=== PATIENT | female | born 1995 | race Caucasian/White ===

== ENCOUNTER 2019-07-16 18:31 | Emergency (ER) | payer SELFPAY ==
[~2019-07-16] VITALS: Ht 172.7 cm; Wt 125.5 kg
[2019-07-16 18:39] VITALS: BP 138/88
[2019-07-16] MEDS ORDERED: AMOX1TAB61 PO (18:51)
--- NOTE | 2019-07-16 18:52 | PHYS DOC ---
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 Pt states that [place] was at the dog park around 1800 today and a "mastiff" type dog came over and started to attack her dog and pt received multiple bites while trying to protect her dog. Pt states that she talked to the dog owners shortly and they claimed the dog was up to date on vaccinations and then subsequently left before exchanging any more information. Pt is not sure when her last tetanus vaccine was. Denies . Review of Systems Review of Systems Constitutional: Denies fever or chills Eyes: Denies redness or eye pain HENT: Denies nasal congestion or sore throat Respiratory: Denies cough or shortness of breath Cardiovascular: Denies chest pain or palpitations GI: Denies abdominal pain, nausea, or vomiting : Denies dysuria or hematuria Musculoskeletal: Denies back pain or joint pain Integument: Endorses multiple bite wounds on left extremity Neurologic: Denies headache, focal weakness or sensory changes Complete systems were reviewed and found to be within normal limits, except as documented in this note. Allergies Allergies NKDA Physical Exam Physical Exam Constitutional: Well developed, well nourished, no acute distress, non-toxic appearance HENT: Normocephalic, atraumatic, oropharynx moist Eyes: Conjunctiva normal, no discharge Neck: Normal range of motion, no tenderness, supple Cardiovascular: Heart rate normal, regular rhythm Lungs & Thorax: Bilateral breath sounds clear to auscultation, no wheezing Skin: Warm, dry, no erythema, no rash, greater than 5 open wounds on left upper extremity, edema surrounding wounds. Wounds tender to palpation. Largest wound is on dorsal aspect of hand near wrist measuring 1cm in length, 1-2mm in depth, slow active bleeding, no foreign body noted Extremities: No tenderness, ROM intact, no edema, left hand tendon function intact, left wrist ROM intact Neurologic: Alert and oriented X 3, no focal deficits noted Psychologic: Affect normal, judgment normal EKG EKG [] Radiology/Procedures Radiology/Procedures [] Course & Med Decision Making Course & Med Decision Making Pt is a 23 yo female presenting after suffering multiple dog bite wounds to left hand. Pt reports no tenderness to palpation of upper extremity bony prominences. No foreign body noted. Hand/wrist ROM intact. Pt states that attacking dog owners did not provide any information on dog other than reporting it's vaccinations were up to date. No evidence to support bony fracture. Wound care provided. Empiric antibiotics initiated. Will send patient home with a course of oral and antibiotics, and directions to apply triple antibiotic ointment to wounds as well. No primary closure indicated as wound is on hand s/p animal bite. Rabies low risk. Patient stable for discharge with outpatient follow-up with PCP. Discussed findings and plan with patient and family, who acknowledge understanding and agreement. Dragon Disclaimer Dragon Disclaimer This electronic medical record was generated, in whole or in part, using a voice recognition dictation system. Departure Departure: Impression: Primary Impression: Dog bite Disposition: HOME, SELF-CARE Condition: STABLE Referrals: PCP,NO (PCP) Patient Instructions: Animal Bite, [id number], VIS, Tetanus, Diphtheria (Td); Tetanus, Diphtheria, Pertussis (Tdap) - CDC Additional Instructions: Do not soak your wound. You may shower. Clean wound daily with soap and water. Change dressing 2 times daily. Use over the counter antibiotic ointment with each dressing change. Scripts Amoxicillin/Potassium Clav (AUGMENTIN 875-125 TABLET) 1 Each Tablet 1 TAB PO BID for Dog bite for 7 Days, #14 TAB 0 Refills Prov: ALANNA CRISTOBAL DO 07/16/19 Problem Qualifiers Primary Impression: Dog bite Encounter type: initial encounter Qualified Codes: W54.0XXA - Bitten by dog, initial encounter ALANNA CRISTOBAL DO Jul 16, 2019 18:52
[2019-07-16] MEDS ORDERED: AMOXICILLIN/K CLAV 875/125MG TABLET. PO ONE (19:00)
[2019-07-16] MEDS ORDERED: NEOMY/BACITR/POLYMYXIN OINT PACKET. TP ONE (19:00)
[2019-07-16] MEDS ORDERED: DIPHTH,PERTUSS(ACELL),TET TOX 0.5 ML DISP.SYRIN. VAX IM ONE (19:30)
== END 2019-07-16 19:15 | disposition home or self-care (01) ==
LOC: ER 18:31
DX: S61.402A Unspecified open wound of left hand, initial encounter (principal); W54.0XXA Bitten by dog, initial encounter; Y93.89 Activity, other specified; Y92.89 Other specified places as the place of occurrence of the external cause; Y99.8 Other external cause status
CPT/HCPCS: 90471; 90715; 99283

== ENCOUNTER 2020-10-14 05:23 | Emergency (ER) | payer SELFPAY ==
[~2020-10-14] VITALS: Ht 170.2 cm; Wt 135.0 kg
[~2020-10-14 05:23] MED LIST: AMOX1TAB61 PO
[2020-10-14 05:40] VITALS: BP 139/91
[2020-10-14] MEDS ORDERED: MICO15CR7 VG (05:51)
[2020-10-14] MEDS ORDERED: NORE-205 PO (05:51)
[2020-10-14 05:56] LABS: CLARITY,URINE CLEAR; COLOR,URINE YELLOW
[2020-10-14 05:57] LABS: BILIRUBIN,URINE NEG (NEG); GLUCOSE,URINE NEG (NEG); NITRITE,URINE NEG (NEG); UROBILINOGEN,URINE 0.2 mg/dL (0.2 mg/dL)
[2020-10-14 06:01] LABS: BACTERIA,URINE MOD /HPF (0-FEW); SQUAMOUS EPITHELIAL CELL,UR FEW /LPF
--- NOTE | 2020-10-14 06:10 | PHYS DOC ---
Past History Past Surgical History: No Surgical History Smoking: Non-smoker Alcohol Use: None Drug Use: None General Adult EDM: Chief Complaint: VAGINAL PROBLEM HPI: HPI: 24-year-old female presents with vaginal discharge and pain. Patient had UTI symptoms started 6 days ago. She was prescribed Bactrim and took that for 3 days. Her URI symptoms have improved but now she has a white, thick vaginal discharge. It is occasionally pruritic. She has tried Monistat tctb-tcb-[id number] cream yesterday and today. When she puts that on it has caused a burning sensation and she cannot tolerate it. She decided she would come in this morning for evaluation. She denies fever or chills. She denies history of STD. She is in a sexual relationship at this time. Her boyfriend accompanies her. Review of Systems: Review of Systems: Constitutional: Denies fever or chills Eyes: Denies change in visual acuity HENT: Denies nasal congestion or sore throat Respiratory: Denies cough or shortness of breath Cardiovascular: Denies chest pain or edema GI: Denies abdominal pain, nausea, vomiting, bloody stools or diarrhea : Vaginal discharge Musculoskeletal: Denies back pain or joint pain Integument: Denies rash Neurologic: Denies headache, focal weakness or sensory changes Endocrine: Denies polyuria or polydipsia Lymphatic: Denies swollen glands Psychiatric: Denies depression or anxiety Allergies: Allergies: Allergies Coded Allergies Type Severity Reaction Last Updated Verified No Known Drug Allergies 10/14/20 No Physical Exam: PE: Constitutional: Well developed, well nourished, no acute distress, non-toxic appearance. [] HENT: Normocephalic, atraumatic, bilateral external ears normal, oropharynx moist, no oral exudates, nose normal. [] Eyes: PERRLA, EOMI, conjunctiva normal, no discharge. [] Neck: Normal range of motion, no tenderness, supple, no stridor. [] Cardiovascular:Heart rate regular rhythm, no murmur [] Lungs & Thorax: Bilateral breath sounds clear to auscultation [] Abdomen: Bowel sounds normal, soft, no tenderness, no masses, no pulsatile masses. [] Skin: Warm, dry, no erythema, no rash. [] Back: No tenderness, no CVA tenderness. [] Extremities: No tenderness, no cyanosis, no clubbing, ROM intact, no edema. [] Neurologic: Alert and oriented X 3, normal motor function, normal sensory function, no focal deficits noted. [] Psychologic: Affect normal, judgement normal, mood normal. : Normal external genitalia. Red, irritated vaginal wall with thick white discharge. Mild tenderness with exam. [] Current Patient Data: Labs: Laboratory Tests Test 10/14/20 05:35 Urine Collection Type Void Urine Color Yellow Urine Clarity Clear Urine pH 5.5 Urine Specific [place] 1.020 Urine Protein Neg (NEG-TRACE) Urine Glucose (UA) Neg mg/dL (NEG) Urine Ketones (Stick) Neg mg/dL (NEG) Urine Blood Small (NEG) Urine Nitrite Neg (NEG) Urine Bilirubin Neg (NEG) Urine Urobilinogen Dipstick 0.2 mg/dL (0.2 mg/dL) Urine Leukocyte Esterase Mod (NEG) Urine RBC 6-10 /HPF (0-2) Urine WBC 11-20 /HPF (0-4) Urine Squamous Epithelial Cells Few /LPF Urine Bacteria Mod /HPF (0-FEW) Vital Signs: Vital Signs Date Time Temp Pulse Resp B/P (MAP) Pulse Ox O2 Delivery O2 Flow Rate FiO2 10/14/20 05:40 98.3 106 20 139/91 (107) 98 Room Air EKG: EKG: [] Radiology/Procedures: Radiology/Procedures: [] Heart Score: C/O Chest Pain: N/A Risk Factors: Risk Factors: DM, Current or recent (<one month) smoker, HTN, HLP, family history of CAD, obesity. Risk Scores: Score 0 - 3: 2.5% MACE over next 6 weeks - Discharge Home Score 4 - 6: 20.3% MACE over next 6 weeks - Admit for Clinical Observation Score 7 - 10: 72.7% MACE over next 6 weeks - Early Invasive Strategies Course & Med Decision Making: Course & Med Decision Making Pertinent Labs and Imaging studies reviewed. (See chart for details) The patient's wet prep is suggestive of bacterial vaginosis. I will treat her with Flagyl 500 twice daily for 7 days. She is stable for discharge at this time. [] Dragon Disclaimer: Dragon Disclaimer: This electronic medical record was generated, in whole or in part, using a voice recognition dictation system. Departure Departure: Impression: Primary Impression: Bacterial vaginosis Disposition: HOME / SELF CARE / HOMELESS Condition: STABLE Referrals: PCP,NO (PCP) Patient Instructions: Bacterial Vaginosis, [id number] Scripts Metronidazole (METRONIDAZOLE) 500 Mg Tablet 1 TAB PO BID for bacterial vaginosis for 7 Days, #14 TAB 0 Refills Prov: DOMINIC BETANCOURT DO 10/14/20 DOMINIC BETANCOURT DO Oct 14, 2020 06:10
[2020-10-14] MEDS ORDERED: METR-34 PO (06:53)
[2020-10-15 13:08] LABS: CHLAMYDIA PROBE Negative (Negative)
== END 2020-10-14 07:00 | disposition home or self-care (01) ==
LOC: ER 05:23
DX: N76.0 Acute vaginitis (principal); B96.89 Other specified bacterial agents as the cause of diseases classified elsewhere
CPT/HCPCS: 81001; 87086; 87491; 87591; 99284; Q0111

== ENCOUNTER 2020-12-22 22:00 | Emergency (ER) | payer SELFPAY ==
[~2020-12-22] VITALS: Ht 170.2 cm; Wt 132.5 kg
[~2020-12-22 22:00] MED LIST changes: +METR-34 PO; +MICO15CR7 VG; +NORE-205 PO
--- NOTE | 2020-12-23 00:59 | PHYS DOC ---
Past History Past Medical History: No Pertinent History Past Surgical History: No Surgical History Smoking: Non-smoker Alcohol Use: None Drug Use: None General Adult EDM: Chief Complaint: FOOT INJURY PAIN HPI: HPI: "..I was walking the other day.. and I rolled or invert this Lt. ankle and foot.. it is still really sore.." Patient is a 25 year old female who presents with above hx and complaints injury to left foot and ankle by inversion. Patient states injury occurred approximately 8 days ago with no marked improvement. Has been able to bear weight with a limp. Has obvious swelling. Has positive foot squeeze test positive pain on inversion of ankle. There is some laxity anterior draw. History of vascular appears equal to right foot. No history of penetration injury. Patient normally healthy. No sick ill contacts. No history immunosuppression. Review of Systems: Review of Systems: Constitutional: Denies fever or chills Eyes: Denies change in visual acuity HENT: Denies nasal congestion or sore throat Respiratory: Denies cough or shortness of breath Cardiovascular: Denies chest pain or edema GI: Denies abdominal pain, nausea, vomiting, bloody stools or diarrhea : Denies dysuria Musculoskeletal: Complains of left foot and ankle pain Integument: Denies rash Neurologic: Denies headache, focal weakness or sensory changes Endocrine: Denies polyuria or polydipsia Lymphatic: Denies swollen glands Psychiatric: Denies depression or anxiety Allergies: Allergies: Allergies Coded Allergies Type Severity Reaction Last Updated Verified No Known Drug Allergies 10/14/20 No Physical Exam: PE: Constitutional: Well developed, well nourished, no acute distress, non-toxic appearance. [] HENT: Normocephalic, atraumatic, bilateral external ears normal, oropharynx moist, no oral exudates, nose normal. [] Eyes: PERRLA, EOMI, conjunctiva normal, no discharge. [] Neck: Normal range of motion, no tenderness, supple, no stridor. [] Cardiovascular:Heart rate regular rhythm, no murmur [] Lungs & Thorax: Bilateral breath sounds clear to auscultation [] Abdomen: Bowel sounds normal, soft, no tenderness, no masses, no pulsatile masses. [] Skin: Warm, dry, no erythema, no rash. [] Back: No tenderness, no CVA tenderness. [] Extremities: No tenderness, no cyanosis, no clubbing, ROM intact, no edema. [] Neurologic: Alert and oriented X 3, normal motor function, normal sensory function, no focal deficits noted. [] Psychologic: Affect normal, judgement normal, mood normal. [] EKG: EKG: [] Radiology/Procedures: Radiology/Procedures: [][place] [address] IMAGING REPORT Signed PATIENT: NIKKIE RUIZ ACCOUNT: [id number] : 1995 LOCATION: ER AGE: 25 SEX: F EXAM STATUS: DEP ER ORD. PHYSICIAN: GERMAN HOWARD MD REASON: rolled ankle and foot, LATERAL FOOT & ANKLE PAIN, X 8 DAYS PROCEDURE: FOOT LEFT 3V Left foot x-rays 3 views HISTORY: Injury, left lateral foot pain. FINDINGS: Small os peroneus. No fracture or dislocation of the foot. Soft tissues are unremarkable. IMPRESSION: No acute osseous injury. Left ankle x-rays 3 views HISTORY: Injury, lateral ankle and foot pain. FINDINGS: No fracture. No dislocation. No talus osteochondral lesion. Soft tissues are unremarkable. IMPRESSION: No acute osseous injury. Electronically signed by: Elba Hudson MD (12/23/2020 3:48 AM) [facility] [place] DICTATED AND SIGNED BY: ELBA HUDSON MD DATE: 12/23/20 0345 CC: GERMAN HOWARD MD; PCP,NO ~MTH0 0 Heart Score: C/O Chest Pain: N/A Risk Factors: Risk Factors: DM, Current or recent (<one month) smoker, HTN, HLP, family history of CAD, obesity. Risk Scores: Score 0 - 3: 2.5% MACE over next 6 weeks - Discharge Home Score 4 - 6: 20.3% MACE over next 6 weeks - Admit for Clinical Observation Score 7 - 10: 72.7% MACE over next 6 weeks - Early Invasive Strategies Course & Med Decision Making: Course & Med Decision Making Pertinent Labs and Imaging studies reviewed. (See chart for details) Ice, elevation, rest, wear a stiff shoe or shoe with ankle support. Take Tylenol or ibuprofen for pain. Follow-up primary care. Return if any concerns. If continued pain consider repeat x-ray in 2 weeks to see if you have a nondisplaced fracture that did not show on the first film. Consider follow-up with [facility]. Return if any concerns. []Impression: 1. Right foot and ankle sprain strain. [place] Disclaimer: Chidi Disclaimer: This electronic medical record was generated, in whole or in part, using a voice recognition dictation system. Departure Departure: Referrals: PCP,NO (PCP) Chidi Disclaimer This chart was dictated in whole or in part using Voice Recognition software in a busy, high-work load, and often noisy Emergency Department environment. It may contain unintended and wholly unrecognized errors or omissions. GERMAN HOWARD MD Dec 23, 2020 00:59
[2020-12-23 01:31] VITALS: BP 136/90
[2020-12-23] MEDS ORDERED: HYDROcodon/IBUPROFEN 7.5/200MG 1 TAB TABLET PO ONE (02:00)
--- NOTE | 2020-12-23 03:50 | RAD ---
Left foot x-rays 3 views HISTORY: Injury, left lateral foot pain. FINDINGS: Small os peroneus. No fracture or dislocation of the foot. Soft tissues are unremarkable. IMPRESSION: No acute osseous injury. Left ankle x-rays 3 views HISTORY: Injury, lateral ankle and foot pain. FINDINGS: No fracture. No dislocation. No talus osteochondral lesion. Soft tissues are unremarkable. IMPRESSION: No acute osseous injury. Electronically signed by: Brendon Hudson MD (12/23/2020 3:48 AM) [facility]
== END 2020-12-23 02:04 | disposition home or self-care (01) ==
LOC: ER 22:00
DX: S93.401A Sprain of unspecified ligament of right ankle, initial encounter (principal); X50.1XXA Overexertion from prolonged static or awkward postures, initial encounter; Y93.01 Activity, walking, marching and hiking; Y92.89 Other specified places as the place of occurrence of the external cause; Y99.8 Other external cause status
CPT/HCPCS: 73610; 73630; 81025; 99284-25

== ENCOUNTER 2021-03-06 12:06 | Emergency (ER) | payer SELFPAY ==
[~2021-03-06] VITALS: Ht 170.2 cm; Wt 131.0 kg
[2021-03-06 12:10] VITALS: BP 150/80
[2021-03-06] MEDS ORDERED: BENZ100C PO (12:56)
[2021-03-06] MEDS ORDERED: METH4TAB2 PO (12:56)
--- NOTE | 2021-03-06 12:56 | PHYS DOC ---
Past History Past Medical History: No Pertinent History (ARLENE NGUYEN APRN) Past Surgical History: No Surgical History (ARLENE NGUYEN APRN) Smoking: Non-smoker Alcohol Use: Occasionally Drug Use: None (ARLENE NGUYEN APRN) General Adult EDM: Chief Complaint: COUGH HPI: HPI: Patient is a 25-year-old female who presents to the emergency department for a cough for 1 month. Patient reports that she was seen at [facility] care and they told her that she likely did have Covid although she was not tested and she was discharged with an antibiotic. Patient reports that she filled her amoxicillin on February 20 and took her entire dosage. Patient reports that her cough is dry and productive. She denies fever, shortness of breath, loss of taste or smell, chest pain, nausea, vomiting, sick exposures, recent travel. Patient is afebrile and her vital signs are stable. (ARLENE NGUYEN APRN) Review of Systems: Review of Systems: 14 body systems of the review of systems have been reviewed. See HPI for pertinent positive and negative responses, otherwise all other systems are negative, nonpertinent or noncontributory (ARLENE NGUYEN APRN) Allergies: Allergies: Allergies Coded Allergies Type Severity Reaction Last Updated Verified No Known Drug Allergies 10/14/20 No (ARLENE NGUYEN APRN) Physical Exam: PE: Constitutional: Well developed, well nourished, no acute distress, non-toxic appearance. [] HENT: Normocephalic, atraumatic, bilateral external ears normal, oropharynx moist, no oral exudates, nose normal. [] Eyes: PERRL, EOMI, conjunctiva normal, no discharge. [] Neck: Normal range of motion, no tenderness, supple, no stridor. [] Cardiovascular:Heart rate regular rhythm, no murmur [] Lungs & Thorax: Bilateral breath sounds clear to auscultation [] Abdomen: Bowel sounds normal, soft, no tenderness, no masses, no pulsatile masses. [] Skin: Warm, dry, no erythema, no rash. [] Back: Normal range of motion Extremities: No tenderness, no cyanosis, no clubbing, ROM intact, no edema. [] Neurologic: Alert and oriented X 3, normal motor function, normal sensory function, no focal deficits noted. [] Psychologic: Affect normal, judgement normal, mood normal. [] (ARLENE NGUYEN APRN) Current Patient Data: Vital Signs: Vital Signs Date Time Temp Pulse Resp B/P (MAP) Pulse Ox O2 Delivery O2 Flow Rate FiO2 03/06/21 12:10 98.8 80 16 150/80 (103) 100 Room Air (ARLENE NGUYEN APRN) EKG: EKG: [] (ARLENE NGUYEN APRN) Radiology/Procedures: Radiology/Procedures: []PROCEDURE: PORTABLE CHEST 1V Single view of the chest. 03/06/2021 12:50 PM Indication: Reason: cough / Spl. Instructions: / History: Comparison: None Findings: There is no focal consolidation. There is no pleural effusion or pneumothorax. The cardiomediastinal silhouette and pulmonary vasculature are within normal limits. No acute osseous abnormalities are seen. Impression: No evidence of acute cardiopulmonary process. Electronically signed by: John Guzman MD (03/06/2021 1:06 PM) [id number] DICTATED AND SIGNED BY: JOHN GUZMAN MD DATE: 03/06/21 1305 CC: ARLENE NGUYEN APRN; PCP,NO ~MTH0 0 (ARLENE NGUYEN APRN) Heart Score: C/O Chest Pain: N/A Risk Factors: Risk Factors: DM, Current or recent (<one month) smoker, HTN, HLP, family history of CAD, obesity. Risk Scores: Score 0 - 3: 2.5% MACE over next 6 weeks - Discharge Home Score 4 - 6: 20.3% MACE over next 6 weeks - Admit for Clinical Observation Score 7 - 10: 72.7% MACE over next 6 weeks - Early Invasive Strategies (ARLENE NGUYEN APRN) Course & Med Decision Making: Course & Med Decision Making Pertinent Labs and Imaging studies reviewed. (See chart for details) Patient presents emergency department for a cough x1 month. Chest x-ray was performed that showed no acute findings. Patient was tested for Covid and will be notified of those results when they become available in approximately 2 days, she was advised to self isolate until she receives these results. Patient will be discharged home with a steroid taper and Tessalon Perles for her cough. She is advised to increase her fluids. She is also advised to take Tylenol and/or ibuprofen for her pain or any fevers that may develop. Advised to follow-up with her primary care provider. I discussed with patient all findings and diagnostic testing as well as the need to follow-up with PCP for further evaluation and treatment or return to the ER if any new or worsening symptoms. Strict return precautions were also discussed at length. Patient voiced understanding and agreement with the plan. Patient is hemodynamically stable at the time of disposition. (ARLENE NGUYEN APRN) Dragon Disclaimer: Dragon Disclaimer: This electronic medical record was generated, in whole or in part, using a voice recognition dictation system. (ARLENE NGUYEN APRN) Attending Co-Sign The patient was seen and interviewed as well as examined at the bedside. The chart was reviewed. The case was discussed. Agree with the plan of care. (DOMINIC BETANCOURT DO) Departure Departure: Impression: Primary Impression: Cough Disposition: HOME / SELF CARE / HOMELESS Condition: GOOD Referrals: PCP,ATTILA (PCP) Patient Instructions: Cough, Adult Additional Instructions: You were seen in the emergency department today for cough. A chest x-ray was performed that showed no acute findings.. You were tested in the ER today for COVID-19, you will be notified of those results when they become available in approximately 2 days. Please self isolate until you receive these results. You develop any pain or fevers you can take Tylenol and/or ibuprofen. Increase your fluids may thin out your secretions and help with your cough. You are being discharged home with a steroid taper and cough medication. Please use these as directed. Follow-up with your primary care provider within the week regarding your ER visit. Return to the emergency department if you develop shortness of breath, chest pain, high fevers refractory to treatment, worsening of your cough, intractable nausea or vomiting. Scripts Methylprednisolone (MEDROL) 4 Mg Tab.ds.pk 1 PKG PO UD for cough, #1 PKG 0 Refills Prov: ARLENE NGUYEN APRN 03/06/21 Benzonatate (TESSALON PERLE) 100 Mg Capsule 1 CAP PO TID for cough for 7 Days, #21 CAP 0 Refills Prov: ARLENE NGUYEN APRN 03/06/21 ARLENE NGUYEN APRN Mar 06, 2021 12:56 DOMINIC BETANCOURT DO Mar 06, 2021 17:34
--- NOTE | 2021-03-06 13:08 | RAD ---
Single view of the chest. 03/06/2021 12:50 PM Indication: Reason: cough / Spl. Instructions: / History: Comparison: None Findings: There is no focal consolidation. There is no pleural effusion or pneumothorax. The cardiome diastinal silhouette and pulmonary vasculature are within normal limits. No acute osseous abnormaliti es are seen. Impression: No evidence of acute cardiopulmonary process. Electronically signed by: John Lindsey MD (03/06/2021 1:06 PM) [id number]
== END 2021-03-06 13:48 | disposition home or self-care (01) ==
LOC: ER 12:06
DX: R05.8 Other specified cough (principal); Z20.822 Contact with and (suspected) exposure to COVID-19
CPT/HCPCS: 71045; 99284; C9803; U0003

== ENCOUNTER → 2021-05-22 | Emergency (ER) | payer OTHER ==
[~2021-05-22] MED LIST changes: +BENZ100C PO; +METH4TAB2 PO
== END | disposition left against medical advice (07) ==
LOC: ER 20:10
DX: R10.31 Right lower quadrant pain (principal); Z53.21 Procedure and treatment not carried out due to patient leaving prior to being seen by health care provider